=== PATIENT | female | born 1945 | race Caucasian/White ===

== ENCOUNTER 2020-03-26 06:38 | Inpatient (IN) | payer OTHER, SELFPAY ==
[2020-03-26] VITALS (18 sets, daily range): BP systolic 132–211; BP diastolic 46–77; PULSE 35–82; RESP 12–24; TEMP 36–36.6; O2SAT 94–100; BMI 27.3; BMI 27.4
--- NOTE | 2020-03-26 | ECHO_ITS ---
Patient Info Name: Annel Corona Age: 74 years : 1945 Gender: Female Ht: 64 in Wt: 159 lbs BSA: 1.82 m2 HR: 39 bpm BP: 173 / 51 mmHg Heart Rhythm: Sinus Rhythm, Bradycardia Technical Quality: Good Exam Date: 03/26/2020 2:05 PM Exam Location: [facility] Pulmonary Exam Room: 205 Patient Status: Inpatient Admit Date: 03/26/2020 Staff Ordering Physician: Gretchen Almeida MD Chucking Machine Set Up Operator Tool: Yvrose Valdes RDCS Attending Provider: Po Fierro MD Referring Physician: Juan Pablo CAMPBELL; Exam Type: CA echo doppler color flow Study Info Indications - bradycardia Complete two-dimensional, color flow and Doppler transthoracic echocardiogram is performed. Summary 1. Complete two-dimensional, color flow and Doppler transthoracic echocardiogram is performed. 2. Left ventricular chamber dimension is normal. 3. Left ventricular systolic function is normal, estimated at 60-65%. 4. Modest biatrial enlargement. 5. Mild mitral and tricuspid regurgitation. Left Ventricle Left ventricular chamber dimension is normal. Left ventricular systolic function is normal, estimated at 60-65%. The left ventricular diastolic function is indeterminate. Right Ventricle Right ventricular chamber dimension is normal. Left Atria Left atrial chamber dimension is mildly enlarged. Right Atria Right atrial chamber dimension is mildly enlarged. Aortic Valve The aortic valve is normal. Pulmonic Valve The pulmonic valve is normal. Mitral Valve The mitral valve has normal leaflets. There is mild mitral valve regurgitation. The mitral valve annulus is mildly calcified. Tricuspid Valve The tricuspid valve leaflets are normal. There is mild tricuspid valve regurgitation. Pericardium/Pleural The pericardium appears normal. Aorta The aortic root size at the sinus of Valsalva is normal. Left Ventricular Outflow Tract Name Value Normal LVOT 2D LVOT Diameter 2.0 cm LVOT Doppler LVOT Peak Gradient 5 mmHg LVOT Mean Gradient 3 mmHg LVOT VTI 30 cm LVOT VTI/AV VTI Ratio 0.8 LVOT Stroke Volume 96 ml LVOT CO 16.6 l/min LVOT CI 9.1 l/min/m2 Pulmonic Valve Name Value Normal PV Doppler PV Peak Gradient 4 mmHg Mitral Valve Name Value Normal MV Doppler MV Decel Blount 219 cm/s2 MV PHT 80 ms MV Area (P
--- NOTE | ~2020-03-26 | XR_ITS ---
XR chest 1V portable DATE: 03/26/2020 16:48 INDICATION: Pacemaker insertion TECHNIQUE: Portable AP chest on 03/26/2020 at 1646 hours COMPARISON: 03/26/2020 portable AP chest at 0728 hours FINDINGS: Interval placement of left dual-lead pacemaker with leads overlying right atrium and right ventricle. No pneumothorax or pleural effusion. The lungs are clear of infiltrate or consolidation. N o pulmonary vascular congestion. There is mild elevation of the left leaf of the diaphragm. There is mild bilateral apical capping. Surgical clips overlie the left upper quadrant of the abdomen. Diffuse osteopenia. IMPRESSION: Interval placement of left-sided dual-lead pacemaker device; no pneumothorax Reviewed, dictated and finalized at location A. IMPRESSION: Interval placement of left-sided dual-lead pacemaker device; no pne umothorax
--- NOTE | ~2020-03-26 | XR_ITS ---
EXAMINATION: XR chest 1V portable DATE: 03/26/2020 07:26 INDICATION: Bradycardia. Right lower quadrant pain and weakness. TECHNIQUE: frontal view of the chest was obtained. COMPARISON: Chest radiograph dated 06/11/2018 FINDINGS: Mild bibasilar opacities including increased interstitial pattern and bronchial wall thickening. Tiny left pleural effusion with blunting at left costophrenic angle. No pneumothorax. Borderline heart si ze accounting for AP technique. Surgical clips in the left upper quadrant. Mild thoracic dextrocurvat ure. IMPRESSION: 1. Mild bibasilar opacities with increased interstitial pattern and bronchial wall thickening which c ould be related to mild pulmonary edema, bronchitis, atelectasis or some combination thereof. 2. Tiny left pleural effusion. 3. Borderline heart size accounting for AP technique. Reviewed, dictated and finalized at location A. IMPRESSION: 1. Mild bibasilar opacities with increased interstitial pattern and bronchial w all thickening which could be related to mild pulmonary edema, bronchitis, atel ectasis or some combination thereof. 2. Tiny left pleural effusion. 3. Borderline heart size accounting for AP technique.
--- NOTE | ~2020-03-26 | XR_ITS ---
XR knee LT 3V 03/27/2020 13:36 Indication: Left knee pain and swelling Procedure: 3 views left knee Comparison: No prior studies for comparison. Findings: There is moderate-severe osteoarthritis of the left knee, most advanced in the medial kristin rtment. There is chondrocalcinosis. There is a moderate joint effusion. No acute fracture or traumati c malalignment. Impression: 1: Moderate-severe osteoarthritis of the left knee with moderate joint effusion. 2: Chondrocalcinosis. Reviewed, dictated and finalized at location A. Impression: 1: Moderate-severe osteoarthritis of the left knee with moderate joint effusion . 2: Chondrocalcinosis.
--- NOTE | ~2020-03-26 | XR_ITS ---
EXAMINATION: XR chest 2V DATE: 03/27/2020 15:54 INDICATION: Pacer placement. TECHNIQUE: Frontal and lateral views of the chest were obtained. COMPARISON: Chest single view 03/26/2020, chest 2 views 06/11/2018 FINDINGS: There is chronic mild elevation of left hemidiaphragm. There are small pleural effusions. N o pneumothorax. The heart size is normal. There is a left chest wall pacer with leads in the right at rium and right ventricle. Surgical clips overlie left upper quadrant. IMPRESSION: 1. Small pleural effusions. Reviewed, dictated and finalized at location A. IMPRESSION: 1. Small pleural effusions.
--- NOTE | 2020-03-26 07:02 | ED.GENADULT ---
HPI - General Adult General Chief complaint: Unspecified Stated complaint: feels really sick Time Seen by Provider: 03/26/20 07:02 Source: patient Mode of arrival: ambulatory Limitations: no limitations History of Present Illness HPI narrative: Patient is a 74-year-old female who presents for evaluation of fatigue and general malaise. Patient states over the past 3 weeks she has just felt generally unwell with lack of energy. She denies any shortness of breath, chest pain, but states she feels diffusely weak and has had low energy. She has seen her primary care physician twice in that time and has had outpatient laboratory testing sent. She states she has had some right lower groin pain that started yesterday that seems to be worse with movement, without nodule, rash or swelling in that area. No dysuria or hematuria. No vaginal discharge. Patient states that this pain started yesterday and may be musculoskeletal in nature. She denies any recent heavy bending or lifting. Patient states she recently had her medications changed and was taken off carvedilol for having a low heart rate found in her primary care physician's office and placed on lisinopril. Related Data Home Medications Medication Instructions Recorded Confirmed ascorbate calcium-bioflavonoid 500 1 tablet PO BID tablet 06/24/19 mg-200 mg tablet ascorbic acid (vitamin C) 1,000 mg 1 gm PO DAILY 06/24/19 tablet calcium citrate-vitamin D3 500 gm PO BID gm 06/24/19 mg-500 unit/5 gram oral powder multivit,mineral-folic acid 800 tablet PO DAILY tablet 06/24/19 mcg-vit K 100 mcg-herbal no.289 tablet pslgfeowyaok-ruqkubjx-njkzhp 1 tablet PO DAILY 06/24/19 cholecalciferol (vitamin D3) 25 2,000 unit PO DAILY cap 12/23/19 mcg (1,000 unit) capsule cyanocobalamin (vitamin B-12) 500 500 mcg PO DAILY 12/23/19 mcg tablet loratadine 10 mg tablet 10 mg PO DAILY 12/23/19 magnesium oxide PO 12/23/19 turmeric PO 12/23/19 Allergies Allergy/AdvReac Type Severity Reaction Status Date / Time influenza virus vaccine qs Allergy Severe Anaphylaxis Verified 03/26/20 07:02 [id number] (36 mos, up) [From Fluarix Quad] pneumococcal vaccine Allergy Severe Anaphylaxis Verified 03/26/20 07:02 codeine Allergy Mild Nausea and Verified 03/26/20 07:02 Vomiting Review of Systems Review of Systems: Narrative: CONSTITUTIONAL: Denies fever, chills, or sweats. EYES: Denies visual changes ENT: Denies rhinorrhea, congestion, sore throat, or otalgia. CARDIOVASCULAR: Denies chest pain, palpitations, or edema. RESPIRATORY: Denies cough or dyspnea. GASTROINTESTINAL: Denies abdominal pain, nausea, vomiting, or diarrhea. GENITOURINARY: Denies dysuria or hematuria. SKIN: Denies rash or itching. MUSCULOSKELETAL: Denies back pain, joint pain, or myalgia. NEUROLOGIC: Denies headache, numbness, or weakness. [facility] Social History Social History Smoking status: Never smoker Second hand tobacco smoke exposure: No Alcohol intake: never Exam Narrative: Exam Narrative: GENERAL: Awake, alert, conversant HEAD: Normocephalic, atraumatic. EYES: PERRLA and EOMI. ENT: Nares clear, no rhinorrhea or epistaxis. Mucous membranes moist. NECK: Supple. CHEST: No respiratory distress, breathing even and non labored HEART:Bradycardic rate, abnormal rhythm ABDOMEN:Non distended, non tender EXTREMITIES: Normal range of motion. No edema. : Pelvis is non tender. No nodules. No lymphadenopathy. No hernia. Labia majora unremarkable. No lesions or vesicles. SKIN: Warm, dry, no rash. NEURO:No focal deficits. Alert and oriented x3 Course Vital Signs Vital signs: Vital Signs Temperature 36.6 C 03/26/20 06:51 Pulse Rate 35 L 03/26/20 06:51 Respiratory Rate 03/26/20 06:51 Blood Pressure 206/46 H 03/26/20 06:51 Pulse Oximetry 99 03/26/20 06:51 Temperature 36.6 C 03/26/20 06:51 Pulse Rate 42 L
--- NOTE | 2020-03-26 07:03 | ECG_ITS ---
Measurements Intervals [place] Rate: 45 P: AL: 0 QRS: 103 QRSD: 118 T: -3 QT: 509 QTc: 444 Interpretive Statements SINUS RHYTHM WITH COMPLETE HEART BLOCK JUNCTIONAL ESCAPE RHYTHM AND VENTRICULAR ESCAPE COMPLEXES RIGHT AXIS DEVIATION INTRAVENTRICULAR CONDUCTION DELAY BORDERLINE ST-T WAVE ABNORMALITY- ANTEROLAT/INF LEADS ABNORMAL ECG Electronically Signed On 03-26-2020 7:13:04 CDT by Felipe Ross D.O.
--- NOTE | 2020-03-26 07:20 | ECG_ITS ---
Measurements Intervals [place] Rate: 40 P: 53 CA: 265 QRS: -28 QRSD: 145 T: 120 QT: 497 QTc: 406 Interpretive Statements SINUS RHYTHM WITH COMPLETE HEART BLOCK JUNCTIONAL ESCAPE AND VENTRICULAR ESCAPE COMPLEXES POSSIBLE LEFT ATRIAL ENLARGEMENT INTRAVENTRICULAR CONDUCTION DELAY ABNORMAL ECG Electronically Signed On 03-26-2020 8:09:29 CDT by Felipe Ross D.O.
[2020-03-26 07:29] LABS: Basophils Percent Auto 0.3 % (0.2-1.2); Eosinophils Absolute Auto 0.1 K/mm3 (0-0.3); Eosinophils Percent Auto 0.6 % (0-4.4); Hematocrit 43.2 % (37.0-47.0); Hemoglobin 14.5 g/dL (12.0-15.0); Immature Granulocyte Absolute 0.03 K/mm3 (0.00-0.031); Immature Granulocyte Percent A 0.3 % (0-0.5); Immature Platelet Fraction Pct 18.3 % (0.9-11.2); Lymphocytes Absolute Auto 1.57 K/mm3 (0.9-3.2); Lymphocytes Percent Auto 17.4 % (18.3-44.2); Mean Corpuscular HGB Conc 33.6 g/dl (32-36); Mean Corpuscular Hemoglobin 31.3 pg (26-34); Mean Corpuscular Volume 93.3 fl (80-100); Mean Platelet Volume 14.2 fl (7.4-10.4); Monocytes Absolute Auto 1.1 K/mm3 (0.1-0.6); Monocytes Percent Auto 11.8 % (2.6-8.5); Neutrophils Absolute Auto 6.3 K/mm3 (1.3-6.7); Neutrophils Percent Auto 69.6 % (45.5-73.1); Platelet Count Result 210 k/mm3 (150-375); Red Blood Count 4.63 M/mm3 (4.2-5.4); Red Cell Distribution Width 12.7 % (11.5-14.5)
[2020-03-26 07:35] LABS: INR 1.2; Partial Thromboplastin Time 26.6 SECONDS (22.3-36.8); Prothrombin Time 15.2 Seconds (11.1-14.7)
[2020-03-26 07:38] LABS: Alanine Aminotransferase 94 U/L (4-35); Albumin Level 4.1 g/dL (3.5-5.1); Alkaline Phosphatase 66 U/L (38-126); Anion Gap 7 mmol/L (8-16); Aspartate Amino Transferase 34 U/L (14-36); Bilirubin,Total 0.9 mg/dL (0.2-1.3); Blood Urea Nitrogen 13 mg/dL (7-17); Calcium 9.1 mg/dL (8.4-10.2); Carbon Dioxide 28 mmol/L (22-30); Chloride 99 mmol/L (98-107); Estimated CRCL calculation 69 ml/min; Estimated Glomerular Filt Rate > 60; Glucose 104 mg/dL (65-105); Potassium 3.4 mmol/L (3.4-5.0); Sodium 134 mmol/L (137-145)
[2020-03-26 07:50] LABS: Troponin I < 0.012 ng/mL (0.000-0.034)
[2020-03-26 08:27] LABS: NT Pro B Type Natriuretic Pept 1500 PG/ML (5-100)
[2020-03-26 10:00] LABS: Add Urine Microscopic? NO; Appearance Urine Clear (Clear); Bilirubin Urine Negative (Negative); Blood Urine Negative (Negative); Color Urine Yellow (Yellow); Glucose Urine UA Negative (Negative); Ketones Urine Negative (Negative); Leukocyte Esterase Ur Negative LEU/UL (Negative); Nitrate Urine Negative (Negative); Protein Urine Negative (Negative); Specific Grav Ur 1.011 (1.001-1.035); Urobilinogen Urine Negative mg/dL (<2.0)
--- NOTE | 2020-03-26 10:57 | ADMGEN ---
This patient, Annel Corona, was admitted to IMU Room 205-01. Patient/family oriented to hospital policies and general routines including ID bracelet, bed and alarms, visiting hours, pain management, procedures, bathroom and other care routines, personal items, smoking policy, room service/diet, and visiting hours. Valuables list has been completed. Information on how to activate the Rapid Response Team has been discussed. Patient/Family are encouraged to report perceived risks to care and to ask questions if they do not understand what they are told or what they should do.
[2020-03-26 12:24] LABS: Troponin I < 0.012 ng/mL (0.000-0.034)
--- NOTE | 2020-03-26 14:23 | WPDMODSED ---
Moderate Sedation Note-Pt Data Patient Data Diagnosis: symptomatic bradycardia with complete heart block chronic left bundle-branch block hypertension Present Complaint: this is a 74-year-old hypertensive lady with a chronic left bundle-branch block. She enters the hospital with symptoms of generalized fatigue extreme lack of energy but no history of syncope or near syncope. In the emergency room she was found to be bradycardic has sinus rhythm with complete heart block and is now being referred for pacemaker implantation Procedure to be performed/Plan: implantation of permanent dual-chamber pacemaker Allergies Allergy/AdvReac Type Severity Reaction Status Date / Time influenza virus vaccine qs Allergy Severe Anaphylaxis Verified 03/26/20 07:02 [id number] (36 mos, up) [From Fluarix Quad] pneumococcal vaccine Allergy Severe Anaphylaxis Verified 03/26/20 07:02 codeine Allergy Mild Nausea and Verified 03/26/20 07:02 Vomiting Home Medications Medication Instructions Recorded Confirmed Type ascorbate calcium-bioflavonoid 500 1 tablet PO BID tablet 06/24/19 03/26/20 History mg-200 mg tablet ascorbic acid (vitamin C) 1,000 mg 1 gm PO DAILY 06/24/19 03/26/20 History tablet calcium citrate-vitamin D3 500 gm PO BID gm 06/24/19 History mg-500 unit/5 gram oral powder ifftmoejrvuh-avljgmvt-mpyelz 1 tablet PO DAILY 06/24/19 03/26/20 History cholecalciferol (vitamin D3) 25 2,000 unit PO DAILY cap 12/23/19 03/26/20 History mcg (1,000 unit) capsule cyanocobalamin (vitamin B-12) 500 500 mcg PO DAILY 12/23/19 03/26/20 History mcg tablet turmeric 500 mg PO DAILY 12/23/19 03/26/20 History lisinopril 20 1 tablet PO BID #90 tablet 03/15/20 03/26/20 Rx mg-hydrochlorothiazide 12.5 mg tablet Current Medications: Active Medications Cefazolin Sodium (Ancef 1 Gm/D5w 50 Ml Pm) 1 gm in 50 mls @ 100 mls/hr IVPB ONCE ONE Stop: 03/26/20 14:29 Ondansetron HCl (Zofran Inj) 4 mg IV PUSH Q4H PRN PRN Reason: Nausea Sedation/Anesthesia: No previous sedation/anesthesia problems (including family history). PMFSH Social History Social History Smoking status: Never smoker Second hand tobacco smoke exposure: No Alcohol intake: unknown Substance use: never Substance use type: does not use Gender identity (if verbalized by the patient): Female Sexual Orientation (if Verbalized by the Patient): Straight or Heterosexual Spiritual care concerns: No Mod Sed Physical Exam Physical Exam Pre Procedural Exam: Normal: Appearance, Nose, Neck, Throat, Airway, Lungs, Heart Size, Neuro Exam and Extremities and Variation: Heart Rate ( bradycardic) and Heart Rhythm Hours since solid foods: 14 Hours since liquid intake: 14 Internal Medicine - PN: Obj Da Vital Signs Vital Signs: Vital Signs - 24 hr 03/26/20 06:51 03/26/20 08:46 03/26/20 09:25 Temperature 36.6 C Pulse Rate 35 L 39 L 35 L Respiratory Rate 20 18 24 H Blood Pressure 206/46 H 173/51 H 188/57 H Pulse Oximetry 99 97 97 03/26/20 09:36 03/26/20 10:30 03/26/20 11:56 Temperature 36.2 C L 36.2 C L Pulse Rate 42 L 43 L 41 L Respiratory Rate 17 16 16 Blood Pressure 167/62 H 211/49 H 147/67 H Pulse Oximetry 98 100 100 Intake/Output Intake/Output: Intake & Output 03/23/20 03/24/20 03/25/20 03/26/20 23:59 23:59 23:59 23:59 Output Total 400 Balance -400 Meds/Results Medications: Active Medications Generic Name Dose Route Start Last Admin Trade Name Freq PRN Reason Stop Dose Admin Cefazolin Sodium 1 gm in 50 mls @ 100 mls/hr 03/26/20 14:00 Ancef 1 Gm/D5w 50 Ml Pm IVPB 03/26/20 14:29 ONCE ONE Ondansetron HCl 4 mg 03/26/20 09:01 Zofran Inj IV PUSH Q4H PRN Nausea Radiology Results: ITS Impressions Chest X-Ray 03/26/20 07:32 IMPRESSION: 1. Mild bibasilar opacities with increased interstitial pattern and bronchial wall thic
--- NOTE | 2020-03-26 14:28 | PM.CNCAR ---
Assessment and Plan Additional Plan 74-year-old woman with hypertension and chronic left bundle-branch block presents with fatigue lack of energy and significant bradycardia because of acquired complete heart block. The setting permanent cardiac pacemaker implant has been recommended. The patient understands the procedure all the risks were discussed in detail with she and her and she wishes to proceed we will schedule this procedure for this afternoon Quinn Feng MD [facility] History of Present Illness History of Present Illness Consult date/time: 03/26/20 14:28 Reason For Visit: Bradycardia Narrative: this is a 74-year-old patient I am seeing at the request of the hospitalist for evaluation of bradycardia and complete heart block. The patient has a history of chronic left bundle branch block but no other history of significant cardiac problems. She was seen several years ago by my partner, Dr. Umaña in consultation because of chest pain. She did have a left bundle-branch block at that time at that time her symptoms were felt to be atypical of angina and a Lexiscan nuclear stress test was done as an outpatient with unremarkable findings. As such she had not really been followed routinely in our office and has been doing well. She states of between 1-2 weeks ago she suddenly noticed that she has sense of extreme fatigue and lack of energy and saw her physician. She found to be a bit bradycardic so she was taken off of a small dose of carvedilol that she was on she did not feel any better so she came to the emergency room this morning was found to be in complete heart block with escape rhythm heart rate of about 35. In this setting she was seen in consultation and she is no longer taking any medications that would affect the AV node physiology and as such permanent pacemaker implantation was recommended. Review of Systems Constitutional: Constitutional: Reports fatigue and Reports weakness Eyes: Eyes: Reports no additional eye complaints ENT: Reports system reviewed and no additional complaints, except as documented Cardiovascular: Cardiovascular: Reports as per HPI Respiratory: Respiratory: Reports dyspnea on exertion Gastrointestinal: Gastrointestinal: Reports no additional gastrointestinal complaints Musculoskeletal: Musculoskeletal: Reports no additional musculoskeletal complaints Integumentary/Breasts: Skin/Breast: Reports system reviewed and no additional complaints, except as docu Neurologic: Reports system reviewed and no additional complaints, except as documented Endocrine: Endocrine: Reports no additional endocrine complaints Hematologic/Lymphatic: Hematologic/Lymphatic: Reports no additional hematologic/lymphatic complaints Allergic/Immunologic: Allergic/Immunologic: Reports no additional allergic/immunologic complaints PMFSH Social History Social History Smoking status: Never smoker Second hand tobacco smoke exposure: No Alcohol intake: unknown Substance use: never Substance use type: does not use Gender identity (if verbalized by the patient): Female Sexual Orientation (if Verbalized by the Patient): Straight or Heterosexual Spiritual care concerns: No Meds Home Medications and Allergies Home Medications Medication Instructions Recorded Confirmed Type ascorbate calcium-bioflavonoid 500 1 tablet PO BID tablet 06/24/19 03/26/20 History mg-200 mg tablet ascorbic acid (vitamin C) 1,000 mg 1 gm PO DAILY 06/24/19 03/26/20 History tablet calcium citrate-vitamin D3 500 gm PO BID gm 06/24/19 History mg-500 unit/5 gram oral powder kopfrnayvevn-xjoeibcd-zlprww 1 tablet PO DAILY 06/24/19 03/26/20 History cholecalciferol (vitamin D3) 25 2,000 unit PO DAILY cap 12/23/19 03/26/20 History mcg (1,000 unit) capsule cyanocobalamin (vitamin B-12) 500 500 mcg PO DAILY 12/23/19 03/26/20 History mcg tablet turme
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
--- NOTE | 2020-03-26 16:07 | ECG_ITS ---
Measurements Intervals [place] Rate: 65 P: 32 RI: 152 QRS: -75 QRSD: 154 T: 82 QT: 475 QTc: 497 Interpretive Statements ATRIAL SENSE- ELECTRONIC VENTRICULAR PACEMAKER NO FURTHER INTERPRETATION IS POSSIBLE ATYPICAL ECG Electronically Signed On 03-26-2020 17:40:00 CDT by Felipe Ross D.O.
--- NOTE | 2020-03-26 16:09 | WPDCARDPROC ---
Cardiac Cath Procedure Note Date of procedure:: 03/26/20 Performing physician:: Quinn Feng MD Indication:: acquired complete heart block Brief clinical history:: this is a 74-year-old lady without any previous history of significant cardiac problems but with a history of chronic left bundle branch block. She began to experience extreme fatigue and dyspnea 1-2 weeks ago and was found in the emergency room to be bradycardic and with evidence of acquired complete heart block. She has no symptoms of syncope or near-syncope and is taking no medications that would affect AV node function. For this reason implantation of a permanent pacemaker device was recommended. Procedure Procedure performed:: Implantation of permanent Biotronik dual-chamber pacemaker Sedation/Medication given:: fentanyl 50 mg Versed 2 mg case start time 3:25 p.m. case end time 4:02 p.m. sedation provided by Hans Santana RN, trained observer Access site:: left subclavian vein Estimated blood loss:: 15-20 cc Procedure note:: patient was brought to the cardiac catheterization lab in the postabsorptive state the left anterior chest wall was prepared and draped in the normal fashion. Anesthesia was provided with 1% lidocaine inferior to clavicle. About 1 in below the clavicle incision was then made from the mid clavicular line to the deltopectoral groove. Sharp and blunt dissection was used to dissect the subcutaneous tissues to the level of the prepectoral fascia. Electrocautery was used to provide cutaneous hemostasis. A blunt dissection was then used to create a pacemaker pocket inferior to the incision this was packed with an antibiotic infused sponge. Following this attention was turned to venous access. Using the safe sheath kit provided 2 separate punctures were made of the left subclavian vein and the 2 J wires were placed under fluoroscopic visualization into the level of the right atrium. Following this I used the 6 Tamazight be safe sheath to introduce the ventricular lead into the venous circulation and then the atrial lead following this in a similar fashion. Attention was then turned to the positioning of the ventricular lead the stylet was withdrawn and a J-tip stylet was flat fashion using a 3 cc syringe. The lead was negotiated through the right ventricle out to the PA position a straight set was placed into the lead was withdrawn and placed into the right ventricular apex. The fixation screw was deployed and the lead was tested using the analyzer appropriate pacing performance was demonstrated appropriate impedance. And with a 10 volts stimulus there was no evidence of extracardiac stimulation. Once pacing was initiated the intrinsic R-waves were extinguished. Attention was then turned to the atrial lead position. The preformed J stylette was replaced into the lead after the straight stylet was removed. This was used to position the lead tip in the right atrial appendage and the fixation screw was deployed upon withdrawal of the stylet the lead tip was fixed into position and the lead was tested using the analyzer. The pacing and sensing performance was appropriate and a 10 volts stimulus also showed no evidence of extracardiac stimulation. The leads were then secured to the base of the pocket using the supplied suture sleeves and 2 0 silk ties. The retained sponge was then removed from the pocket and the pocket was irrigated with antibiotic infused saline. The pacemaker generator was connected to the leads using the torque wrench the entire assembly was placed into the newly created pocket. The pocket was then closed in layers using 3 0 Vicryl in a interrupted fashion for the subcutaneous tissue and 4 0 Vicryl in a running subcuticular fashion for the skin. Wound was dressed with an Aquacel dressing and a pressure dressing the left arm will be placed in an immobilizer appropriate EKG chest x-ray and antibiotics as well as analgesics were ordered. Th
--- NOTE | 2020-03-26 17:18 | SUR.PHASEII ---
multiple calls placed to call report no answer via voicera or desk. Bedside report given.
[2020-03-26] MEDS: SODIUM CHLORIDE 0.9% IV 1,000 ML 50 ML IV CONT (19:01)
[2020-03-26 19:11] LABS: Troponin I 0.045 ng/mL (0.000-0.034)
[2020-03-27] VITALS (10 sets, daily range): BP systolic 131–175; BP diastolic 50–73; PULSE 56–88; RESP 12–18; TEMP 36.3–36.5; O2SAT 94–95
[2020-03-27 05:38] LABS: Basophils Percent Auto 0.2 % (0.2-1.2); Eosinophils Percent Auto 0.3 % (0-4.4); Hematocrit 39.6 % (37.0-47.0); Hemoglobin 13.3 g/dL (12.0-15.0); Immature Granulocyte Absolute 0.04 K/mm3 (0.00-0.031); Immature Granulocyte Percent A 0.3 % (0-0.5); Lymphocytes Absolute Auto 0.97 K/mm3 (0.9-3.2); Lymphocytes Percent Auto 8.4 % (18.3-44.2); Mean Corpuscular HGB Conc 33.6 g/dl (32-36); Mean Corpuscular Hemoglobin 31.7 pg (26-34); Mean Corpuscular Volume 94.3 fl (80-100); Mean Platelet Volume 13.8 fl (7.4-10.4); Monocytes Absolute Auto 1.2 K/mm3 (0.1-0.6); Monocytes Percent Auto 10.2 % (2.6-8.5); Neutrophils Absolute Auto 9.4 K/mm3 (1.3-6.7); Neutrophils Percent Auto 80.6 % (45.5-73.1); Platelet Count Result 185 k/mm3 (150-375); Red Cell Distribution Width 12.5 % (11.5-14.5); White Blood Count 11.6 K/mm3 (4.5-10.0)
[2020-03-27 05:48] LABS: Alanine Aminotransferase 63 U/L (4-35); Albumin Level 3.3 g/dL (3.5-5.1); Alkaline Phosphatase 58 U/L (38-126); Anion Gap 7 mmol/L (8-16); Aspartate Amino Transferase 23 U/L (14-36); Bilirubin,Total 0.9 mg/dL (0.2-1.3); Blood Urea Nitrogen 12 mg/dL (7-17); Calcium 8.1 mg/dL (8.4-10.2); Carbon Dioxide 25 mmol/L (22-30); Chloride 102 mmol/L (98-107); Estimated CRCL calculation 69 ml/min; Estimated Glomerular Filt Rate > 60; Glucose 94 mg/dL (65-105); Magnesium 1.5 mg/dL (1.6-2.3); Potassium 3.3 mmol/L (3.4-5.0); Sodium 134 mmol/L (137-145)
[2020-03-27] MEDS: MAGNESIUM SULF 2 GM/WATER 50ML 2 GM/50 ML BAG IVPB (09:38)
[2020-03-27] MEDS: POTASSIUM CHLORIDE 20 MEQ TABLET 40 MEQ PO (09:38)
[2020-03-27 10:05] LABS: Uric Acid 6.9 mg/dL (2.5-7.5)
--- NOTE | 2020-03-27 11:07 | PM.PNCARD ---
Progress Note: A&P Additional Plan 74-year-old lady with acquired heart block symptomatic bradycardia warranting implantation of dual-chamber pacemaker. The device was implanted yesterday afternoon. It is checked this morning and is functioning normally. After her bedrest expires from my perspective she can be discharged. She will see the office next Sunday for a all visit to remove the dressing and inspect the incision. Following that routine pacemaker follow-up follow-up will be arranged in the office as well. Quinn Feng MD [facility] Subjective Date/time seen: 03/27/20 11:07 Interval history: follow-up visit in this 74-year-old lady with complete heart block who received a permanent pacemaker implantation yesterday. No cardiovascular symptoms this morning she is having some swelling/knee pain for some reason pacemaker device was checked by the [employer] senior sales representative this morning and is functioning normally. Bedrest orders for her pacemaker implant go until this afternoon. Exam Const: General: comfortable and no acute distress HENMT: Mouth: Yes moist mucous membranes Eyes: Sclera: sclerae normal Pupils: Equal, round and reactive pupils present Neck: Neck: supple and no JVD Thyroid: thyroid normal Resp: Effort & Inspection: normal respiratory effort Auscultation: clear to auscultation bilaterally Cardio: Rate: regular rate Rhythm: regular rhythm GI: Auscultation: normal bowel sounds Skin: General skin exam: normal color Neuro: Cognition (Neuro): normal cognition Extrem: General: normal to inspection Objective Data Vital Signs Vital Signs: Vital Signs - 24 hr 03/26/20 11:56 03/26/20 16:30 03/26/20 16:45 Temperature 36.2 C L 36.2 C L Pulse Rate 41 L 66 70 Respiratory Rate 16 12 16 Blood Pressure 147/67 H 155/71 H 165/70 H Pulse Oximetry 100 97 96 03/26/20 17:00 03/26/20 17:15 03/26/20 17:45 Temperature 36.2 C L 36.2 C L 36.2 C L Pulse Rate 67 64 67 Respiratory Rate 17 18 16 Blood Pressure 151/64 H 159/71 H 143/70 H Pulse Oximetry 95 95 96 03/26/20 18:00 03/26/20 18:15 03/26/20 20:00 Temperature Pulse Rate 76 68 82 Respiratory Rate 16 Blood Pressure 151/74 H Pulse Oximetry 97 97 09/11/20 20:15 03/26/20 21:27 03/26/20 22:00 Temperature 36.1 C L 36.0 C L Pulse Rate 79 77 65 Respiratory Rate 16 16 Blood Pressure 142/59 H 166/77 H Pulse Oximetry 97 97 03/26/20 23:14 03/27/20 00:00 03/27/20 02:00 Temperature 36.1 C L Pulse Rate 68 69 70 Respiratory Rate 16 Blood Pressure 132/50 L Pulse Oximetry 94 94 03/27/20 04:00 03/27/20 04:30 03/27/20 06:00 Temperature 36.3 C L Pulse Rate 70 56 L 70 Respiratory Rate 18 Blood Pressure 131/50 L Pulse Oximetry 95 03/27/20 08:00 Temperature 36.5 C Pulse Rate 73 Respiratory Rate 12 Blood Pressure 175/73 H Pulse Oximetry 95 Intake/Output Intake/Output: Intake & Output 03/24/20 03/25/20 03/26/20 03/27/20 23:59 23:59 23:59 23:59 Intake Total 530 690 Output Total 400 750 Balance 130 -60 Meds/Results Medications: Active Medications Generic Name Dose Route Start Last Admin Trade Name Freq PRN Reason Stop Dose Admin Hydrocodone Bitart/Acetaminophen 1 tab 03/26/20 16:07 03/27/20 09:33 Webb 5-325 Mg PO 1 tab Q6H PRN Administration Pain Rated 1-3 Ondansetron HCl 4 mg 03/26/20 09:01 Zofran Inj IV PUSH Q4H PRN Nausea Radiology Results: ITS Impressions Chest X-Ray 03/26/20 17:01 IMPRESSION: Interval placement of left-sided dual-lead pacemaker device; no pneumothorax Labs Labs: Laboratory Results - last 24 hr 03/26/20 03/26/20 03/27/20 11:42 18:37 04:37 WBC RBC Hgb Hct MCV MCH MCHC RDW Plt Count MPV Immature Gran % (Auto) Neut % (Auto) Lymph % (Auto) [place] % (Auto) Eos % (Auto) Baso % (Auto) Lymph # (Auto) [place] # (Auto) Eos # (Auto) Baso
--- NOTE | 2020-05-13 12:34 | PM.DS ---
DS: Admitting Diagnosis Admitting Diagnosis Admitting Diagnosis: Complete heart block DS: Discharge Diagnosis Discharge Diagnosis (1) Complete heart block: Code(s): I44.2 - Atrioventricular block, complete Status: Acute DS: Summary Hospital Course Reason for hospitalization: Symptomatic bradycardia with complete heart block Hospital Course: This 74-year-old woman who came to the emergency room reporting several weeks of feeling generally weak and unwell. She was found to be bradycardic and electrocardiogram demonstrated evidence of acquired complete heart block. Patient was admitted to the hospital and I saw her in consultation following which implantation of a permanent cardiac pacemaker was recommended. That afternoon the patient was brought to the cardiac catheterization lab where she underwent uneventful implantation of a permanent Biotronik dual-chamber pacemaker for treatment of complete heart block. The procedure was uncomplicated and uneventful. Following the implant 24 hours of bed rest was recorded and patient was seen the following day she was stable in a good candidate for discharge. Patient was discharged home and instructed not to raise left arm above 90? for the next month not to lift anything more than 10 lb with the left arm until seen in the office for follow-up. An appointment was given to the patient for follow-up in the office in 1 week for a are addressing removal she was instructed to keep the dressing clean and dry until the time of that follow-up appointment. Status at Discharge Functional status at discharge: independent ambulation Overall status at discharge: patient is back to baseline Time Spent with Patient Time attestation: Total time spent providing and/or coordinating discharge services: Time spent: Less than 30 minutes Exam Const: General: comfortable and no acute distress HENMT: Mouth: Yes moist mucous membranes Eyes: Sclera: sclerae normal Pupils: Equal, round and reactive pupils present Neck: Neck: supple and no JVD Thyroid: thyroid normal Other: Normal carotid upstrokes no bruits are audible over the neck Resp: Effort & Inspection: normal respiratory effort Auscultation: clear to auscultation bilaterally Cardio: Rate: regular rate Rhythm: regular rhythm GI: GI Palp: Yes Soft to palpation Auscultation: normal bowel sounds Skin: General skin exam: normal color Neuro: Other: Normal cognition no neurological impairment Extrem: General: normal to inspection Discharge Plan Discharge Attending physician on discharge: Po Fierro Consulting providers: Quinn Feng ; Alie Gibbs ; Ronen Zarate ; Felipe Ross ; Dalton Medina ; Garrett Staley V. Discharging Clinician: Cynthia Liao Patient Disposition: Home, Self-Care Activity: as tolerated Diet: heart healthy Discharge Instructions: Hospital Discharge Instructions You will be prescribed a medrol dose pack for your knee. Your xray showed osteoarthritis with moderate effusion. Follow-up with your primary care doctor next week for your knee pain and swelling. If your knee pain or swelling worsens or if the joint becomes red or warm, seek care immediately. You can use ice or heat, elevate the leg, and rest. CARDIOLOGY DISCHARGE INSTRUCTIONS: ACTIVITY:No driving until you are seen in the office for your incision check. No lifting, pushing or pulling more than 5 pounds with left arm for 1 MONTH No lifting left arm above shoulder height for 1 MONTH Wear immobilizer only if you are unable to remember the above activity restrictions. Recommend that it be worn at night. You may shower AFTER you are seen for incision check on April 02 but no tub baths, swimming pool or hot tub for 1MONTH FOLLOW-UP: Follow up with [facility] ([facility]) office at [facility] [address] to have dressing removed, incision check
== END 2020-03-27 17:30 | disposition home or self-care (01) | DRG 244 ==
LOC: ANHED 09:04 → ANHIMU 09:32
PROVIDERS: Nurse Practitioner; Physician Assistant; Admitting Provider Hospitalist; Emergency Provider Emergency Medicine; PCP Family Medicine; Visit Provider Specialist
PROC: 0JH606Z Insertion of Pacemaker, Dual Chamber into Chest Subcutaneous Tissue and Fascia, Open Approach (ICD-10-PCS; CPT 33208; principal; 2020-03-26 14:00)
DX: I44.2 Atrioventricular block, complete (principal); I10 Essential (primary) hypertension; R53.1 Weakness; Z28.21 Immunization not carried out because of patient refusal; Z79.899 Other long term (current) drug therapy; Z88.5 Allergy status to narcotic agent; Z88.7 Allergy status to serum and vaccine
CPT/HCPCS: 33208; 36415; 51701; 71045; 71046; 73562; 80053; 81003; 83735; 83880; 84443; 84484; 84550; 85025; 85055; 85610; 85730; 93005; 93306; 99285; A9270; C1779; C1785; G0378; J0690; J2250; J3010; J3475; J7030; J7040

== ENCOUNTER 2020-03-30 08:47 | Outpatient (CLI) | payer OTHER, SELFPAY ==
[2020-03-30 10:18] LABS: Alanine Aminotransferase 37 U/L (4-35); Alkaline Phosphatase 64 U/L (38-126); Anion Gap 7 mmol/L (8-16); Aspartate Amino Transferase 25 U/L (14-36); Bilirubin,Total 0.9 mg/dL (0.2-1.3); Blood Urea Nitrogen 22 mg/dL (7-17); Calcium 9.3 mg/dL (8.4-10.2); Carbon Dioxide 27 mmol/L (22-30); Chloride 101 mmol/L (98-107); Estimated Glomerular Filt Rate > 60; Glucose 97 mg/dL (65-105); Magnesium 1.6 mg/dL (1.6-2.3); Potassium 3.8 mmol/L (3.4-5.0); Sodium 135 mmol/L (137-145)
== END 2020-03-30 08:48 | disposition home or self-care (01) ==
PROVIDERS: PCP Family Medicine; Visit Provider Physician Assistant
DX: E83.42 Hypomagnesemia (principal); R74.0 Nonspecific elevation of levels of transaminase and lactic acid dehydrogenase [LDH]; E87.6 Hypokalemia
CPT/HCPCS: 36415; 80053; 83735

== ENCOUNTER 2020-07-26 14:36 | Outpatient (CLI) | payer OTHER, SELFPAY ==
--- NOTE | ~2020-07-26 | MM_ITS ---
EXAMINATION: MM screening stewart BI w naomy HISTORY: Screening TECHNIQUE: Craniocaudal and mediolateral oblique 3-D tomosynthesis images were obtained and synthetic 2-D images were generated. CAD analysis was submitted and interpreted. COMPARISON: Comparison to multiple prior studies sequentially, with oldest reviewed study dated 01/2017. BREAST PARENCHYMAL COMPOSITION: There are scattered areas of fibroglandular density. FINDINGS: There is no evidence of suspicious mass, calcification, or architectural distortion to sugg est malignancy in either breast. There has been no suspicious interval change. IMPRESSION: 1. No mammographic evidence of malignancy. 2. Recommend routine screening mammography in one year. BI-RADS Category 1: Negative Reviewed, dictated and finalized at location A. 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
== END 2020-07-26 14:37 | disposition home or self-care (01) ==
LOC: ANHIMG 14:37
PROVIDERS: PCP Family Medicine; Visit Provider Family Medicine
DX: Z12.31 Encounter for screening mammogram for malignant neoplasm of breast (principal)
CPT/HCPCS: 77063; 77067

== ENCOUNTER 2021-06-23 13:39 | Outpatient (CLI) | payer OTHER, SELFPAY ==
[2021-06-23 18:49] LABS: Basophils Percent Auto 0.6 % (0.2-1.2); Eosinophils Absolute Auto 0.1 K/mm3 (0-0.3); Eosinophils Percent Auto 0.9 % (0-4.4); Hematocrit 41.8 % (37.0-47.0); Hemoglobin 13.8 g/dL (12.0-15.0); Immature Granulocyte Absolute 0.02 K/mm3 (0.00-0.031); Immature Granulocyte Percent A 0.3 % (0-0.5); Lymphocytes Absolute Auto 1.63 K/mm3 (0.9-3.2); Lymphocytes Percent Auto 24.7 % (18.3-44.2); Mean Corpuscular Hemoglobin 31.7 pg (26-34); Mean Corpuscular Volume 95.9 fl (80-100); Mean Platelet Volume 11.9 fl (7.4-10.4); Monocytes Absolute Auto 0.8 K/mm3 (0.1-0.6); Monocytes Percent Auto 11.8 % (2.6-8.5); Neutrophils Absolute Auto 4.1 K/mm3 (1.3-6.7); Neutrophils Percent Auto 61.7 % (45.5-73.1); Platelet Count Result 289 k/mm3 (150-375); Red Blood Count 4.36 M/mm3 (4.2-5.4); Red Cell Distribution Width 12.2 % (11.5-14.5); White Blood Count 6.6 K/mm3 (4.5-10.0)
[2021-06-23 20:47] LABS: Alanine Aminotransferase 25 U/L (4-35); Albumin Level 4.7 g/dL (3.5-5.1); Alkaline Phosphatase 74 U/L (38-126); Anion Gap 10 mmol/L (8-16); Aspartate Amino Transferase 32 U/L (14-36); Bilirubin,Total 0.4 mg/dL (0.2-1.3); Blood Urea Nitrogen 15 mg/dL (7-17); Carbon Dioxide 30 mmol/L (22-30); Chloride 94 mmol/L (98-107); Cholesterol 181 mg/dL (0-200); Estimated Glomerular Filt Rate > 60; Glucose 91 mg/dL (65-110); HDL Direct 42 mg/dL; Magnesium 1.6 mg/dL (1.6-2.3); Sodium 134 mmol/L (137-145); Triglycerides 94 mg/dL (<150)
[2021-06-23 20:58] LABS: LDL Cholesterol Direct 135 mg/dL
== END 2021-06-23 13:40 | disposition home or self-care (01) ==
LOC: ANHBWCLAB 13:40
PROVIDERS: PCP Family Medicine; Visit Provider Family Medicine
DX: I44.2 Atrioventricular block, complete (principal); I10 Essential (primary) hypertension; E61.2 Magnesium deficiency
CPT/HCPCS: 36415; 80053; 80061; 83735; 85025

== ENCOUNTER 2021-07-26 06:11 | Observation (INO) | payer MEDICARE, SELFPAY ==
[2021-07-26] VITALS (64 sets, daily range): BP systolic 107–154; BP diastolic 61–94; PULSE 67–103; RESP 10–20; TEMP 36.5–36.7; O2SAT 94–100
--- NOTE | ~2021-07-26 | CT_ITS ---
EXAMINATION: CTA chest PE protocol DATE: 07/26/2021 10:15 INDICATION: Syncope. Elevated d-dimer. TECHNIQUE: Computed tomography (CT) pulmonary angiogram of the chest was performed with 100 mL Omnipa que-350 intravenous contrast. Additional 3D reconstructions utilizing coronal maximum intensity proje ction (MIP) were performed. Automated exposure control and iterative reconstruction technique were em ployed. The dose-length product was 562.46 mGy-cm. COMPARISON: None FINDINGS: Excellent contrast opacification of the pulmonary arteries. There is mild streak artifact from dense contrast in the superior vena cava and right atrium. Mild scattered respiratory motion artifact most prominent in the lung bases were mildly decreases sensitivity in some of the smaller subsegmental pul monary arteries. No pulmonary embolism. Small calcified right upper lobe nodule, calcified mediastina l lymph nodes and calcified nodules in the right hepatic lobe consistent with old granulomatous disea se. No pneumonia or pulmonary edema. Very small bilateral posteriorly layering pleural effusions with mild dependent atelectasis in bilateral lower lobes. Mild cardiomegaly. No pericardial effusion. Nathan l lead pacemaker seen with lead tips at the right atrium and apex of the right ventricle. A few mildl y prominent but still normal-sized likely reactive bilateral hilar lymph nodes. No pathologically enl arged thoracic lymphadenopathy. Thoracic aorta is normal in caliber with no dissection. Multinodular goiter. Small sliding-type hiatal hernia. A few low-attenuation hepatic cysts, the largest measuring 2 cm in the left hepatic lobe. Splenectomy with surgical clip at the empty splenic fossa. Mild thorac ic dextrocurvature. IMPRESSION: 1. No pulmonary embolism. 2. Very small bilateral pleural effusions. 3. Mild cardiomegaly. 4. Multinodular goiter. 5. Small sliding-type hiatal hernia. Reviewed, dictated and finalized at location A. 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
--- NOTE | ~2021-07-26 | CT_ITS ---
EXAMINATION: CT brain wo con DATE: 07/26/2021 07:49 INDICATION: Syncope TECHNIQUE: Computed tomography (CT) of the head was performed without intravenous contrast. Sagittal and coronal reconstructions were performed. The mA was adjusted according to patient size. Iterative reconstruction technique was employed. The dose-length product was 681.00 mGy-cm. COMPARISON: head CT dated 06/11/2018 FINDINGS: No fracture. No acute intracranial hemorrhage, acute infarction or abnormal extra axial fluid collect ion. Ventricles are normal and symmetric. No mass/mass effect. Mild mucosal thickening in the bilater al paranasal sinuses with small amount of posterior layering fluid in the left maxillary sinus. The o rbits and mastoid air cells are normal. IMPRESSION: 1. No fracture or acute intracranial process. Reviewed, dictated and finalized at location A. 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
--- NOTE | ~2021-07-26 | CT_ITS ---
EXAMINATION: CT cervical spine wo con DATE: 07/26/2021 07:50 INDICATION: Neck pain post syncopal episode and fall TECHNIQUE: Computed tomography (CT) of the cervical spine was performed without intravenous contrast. Automated exposure control and iterative reconstruction technique were employed. The dose-length pro duct was 194.83 mGy-cm. COMPARISON: None FINDINGS: Mild reversal of the normal cervical lordosis. 1 mm retrolisthesis C5 on C6. Vertebral body heights a re normal. No fracture. Moderate disc height loss at C4-C5 and C5-C6. Mild disc height loss at the re maining cervical levels. Severe bilateral uncovertebral osteoarthritis at C4-C5 through C6-C7. Bilate ral mild to moderate multilevel cervical facet osteoarthritis. This results in multilevel mild bilate ral neural foraminal stenosis most prominent on the right at C5-C6 and C6-C7. No significant central canal stenosis. Multinodular goiter with several likely benign <1.5 cm thyroid nodules. Mild right an d minimal left apical pleural-parenchymal scarring. Calcified nodule at the right apex consistent wit h old granulomatous disease. IMPRESSION: 1. Moderate cervical spondylosis. No acute osseous abnormality. Reviewed, dictated and finalized at location A. ITAL SUPERINTENDENT
--- NOTE | ~2021-07-26 | US_ITS ---
EXAMINATION: US carotid duplex BI DATE: 07/26/2021 17:35 INDICATION: Syncope TECHNIQUE: Grayscale, color Doppler, and pulsed Doppler images of the cervical carotid arteries were obtained. The degree of vessel stenosis is placed in one of the following categories: normal, <50%, 5 0-69%, >=70% but less than near-occlusion, near-occlusion, or total occlusion. Note that percent sten osis relative to normal distal artery lumen diameter is indirectly measured from velocity measurement s as described by Les, et al. Radiology 2003; 229:340-346. COMPARISON: None. FINDINGS: RIGHT: The right common carotid artery (CCA) peak systolic velocity (PSV) is 138 cm/s. The right internal ca rotid artery (ICA) PSV is 123 cm/s. The right ICA end-diastolic velocity (EDV) is 33 cm/s. The right ICA/CCA PSV ratio is 0.9. Grayscale and color Doppler images yield an estimate of <50% diameter reduc tion from minimal plaque in the ICA. The external carotid artery (ECA) PSV is 145 cm/s. There is ante grade flow in the right vertebral artery. LEFT: The left CCA PSV is 153 cm/s. The left ICA PSV is 131 cm/s. The left ICA EDV is 39 cm/s. The left ICA /CCA PSV ratio is 0.9. Grayscale and color Doppler images including secondary Doppler criteria yield an estimate of <50% diameter reduction from plaque in the ICA. The ECA PSV is 116 cm/s. There is ante grade flow in the left vertebral artery. IMPRESSION: 1. <50% stenosis in the right internal carotid artery. 2. <50% stenosis in the left internal carotid artery. Reviewed, dictated and finalized at location A. INE SETTER SHEET METAL
--- NOTE | 2021-07-26 06:30 | ECG_ITS ---
Measurements Intervals [place] Rate: 67 P: 56 CT: 156 QRS: -24 QRSD: 158 T: 113 QT: 450 QTc: 476 Interpretive Statements SINUS RHYTHM POSSIBLE LEFT ATRIAL ENLARGEMENT LEFT BUNDLE BRANCH BLOCK BASELINE ARTIFACT- I, II, III, AVR, AVL, AVF ABNORMAL ECG Electronically Signed On 07-26-2021 8:44:14 CONSULTING ENGINEER by Felipe Ross D.O.
[2021-07-26 06:49] LABS: Hematocrit 43.1 % (37.0-47.0); Hemoglobin 14.9 g/dL (12.0-15.0); Mean Corpuscular HGB Conc 34.6 g/dl (32-36); Mean Corpuscular Hemoglobin 32.1 pg (26-34); Mean Corpuscular Volume 92.9 fl (80-100); Mean Platelet Volume 11.9 fl (7.4-10.4); Platelet Count Result 184 k/mm3 (150-375); Red Blood Count 4.64 M/mm3 (4.2-5.4); Red Cell Distribution Width 11.9 % (11.5-14.5); White Blood Count 3.6 K/mm3 (4.5-10.0)
--- NOTE | 2021-07-26 06:52 | PC.NURSE ---
RN contacted Sumit Doherty per pt request to notify him that pt was seen in ER and now D/c home. did not answer, left msg requesting a return call.
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
[2021-07-26 07:24] LABS: Band Neutrophils Percent 2 % (0-6); Lymphocytes Absolute Manual 1.51 K/mm3 (1.1-4.5); Monocytes Absolute Manual 0.54 K/mm3 (0.1-0.90); Monocytes Percent Manual 15 % (3-9); Neutrophils Absolute Manual 1.54 K/mm3 (1.7-7.2); Neutrophils Percent Manual 41 % (46-73); Platelet Estimate Adequate (Adequate); Total Cells Counted 100
[2021-07-26 07:31] LABS: Alanine Aminotransferase 56 U/L (4-35); Albumin Level 4.1 g/dL (3.5-5.1); Alkaline Phosphatase 81 U/L (38-126); Anion Gap 9 mmol/L (8-16); Aspartate Amino Transferase 57 U/L (14-36); Bilirubin,Total 0.3 mg/dL (0.2-1.3); Blood Urea Nitrogen 12 mg/dL (7-17); Calcium 8.6 mg/dL (8.4-10.2); Carbon Dioxide 31 mmol/L (22-30); Chloride 83 mmol/L (98-107); Estimated CRCL calculation 68 ml/min; Estimated Glomerular Filt Rate > 60; Glucose 103 mg/dL (65-110); Potassium 3.4 mmol/L (3.4-5.0); Sodium 123 mmol/L (137-145)
[2021-07-26] MEDS: LACTATED RINGERS 1,000 ML 999 ML IV CONT (07:47)
[2021-07-26 08:36] LABS: D Dimer 0.66 ug/mL (<0.48)
[2021-07-26] MEDS: HYDROcodone/acetaminophen (*CRX) 5-325 MG TABLET 1 TAB PO (12:02)
[2021-07-26 13:04] LABS: EDCOVIDSCREEN Negative (Negative)
[2021-07-26] MEDS: LACTATED RINGERS 1,000 ML 100 ML IV CONT ×2 (13:38→23:06)
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
[2021-07-26 17:29] LABS: Anion Gap 10 mmol/L (8-16); Blood Urea Nitrogen 9 mg/dL (7-17); Calcium 8.7 mg/dL (8.4-10.2); Carbon Dioxide 30 mmol/L (22-30); Chloride 89 mmol/L (98-107); Estimated CRCL calculation 68 ml/min; Estimated Glomerular Filt Rate > 60; Glucose 103 mg/dL (65-110); Magnesium 1.6 mg/dL (1.6-2.3); Potassium 3.3 mmol/L (3.4-5.0); Sodium 129 mmol/L (137-145)
--- NOTE | 2021-07-26 17:32 | ADMGEN ---
This patient, Annel Corona, was admitted to 2 Medical Room 242-. Patient/family oriented to hospital policies and general routines including ID bracelet, bed and alarms, visiting hours, pain management, procedures, bathroom and other care routines, personal items, smoking policy, room service/diet, and visiting hours. Information on how to activate the Rapid Response Team has been discussed. Patient/Family are encouraged to report perceived risks to care and to ask questions if they do not understand what they are told or what they should do.
[2021-07-26 18:04] LABS: Hepatitis B Surface Antigen Negative (Negative)
[2021-07-26 18:09] LABS: HAV RESULT Negative (Negative); Hepatitis B Core IgM Result Negative (Negative)
[2021-07-26 18:21] LABS: Hepatitis C Virus Antibody Negative (Negative)
[2021-07-26 22:32] LABS: Creatinine Urine 57.8 mg/dL
[2021-07-26 22:49] LABS: Sodium Urine Random 9 meq/L
[2021-07-26] MEDS: ACETAMINOPHEN 325 MG TABLET 650 MG PO (23:05)
[2021-07-27] VITALS (15 sets, daily range): BP systolic 134–160; BP diastolic 60–90; PULSE 71–94; RESP 16; TEMP 36.4–36.6; O2SAT 94–98; BMI 26.9
--- NOTE | 2021-07-27 | ECHO_ITS ---
Patient Info Name: Annel Corona Age: 75 years : 1945 Gender: Female Ht: 64 in Wt: 156 lbs BSA: 1.80 m2 HR: 90 bpm BP: 138 / 64 mmHg Heart Rhythm: Sinus Rhythm Technical Quality: Good Exam Date: 07/27/2021 4:22 PM Exam Location: [facility] Room: 242 Patient Status: Inpatient Admit Date: 07/26/2021 Staff Ordering Physician: Shellie Welsh Tile Sprayer: Yvrose Valdes RDCS Attending Provider: Boyd Moreira MD Referring Physician: Blaise US; Exam Type: CA echo doppler color flow Study Info Indications - PPM SYNCOPE S/P FALL Complete two-dimensional, color flow and Doppler transthoracic echocardiogram is performed. Summary 1. Complete two-dimensional, color flow and Doppler transthoracic echocardiogram is performed. 2. Normal left ventricular size with borderline concentric hypertrophy. Good systolic function of all segments an estimated ejection fraction of 67%. No focal wall motion abnormalities present. Grade 2 diastolic dysfunction is present. 3. Pacemaker noted in right heart. 4. No significant valve disease. 5. Mild pulmonary hypertension, estimated pulmonary arterial systolic pressure is 41 mmHg. 6. Normal sinus rhythm. Left Ventricle Left ventricular chamber dimension is normal. Left ventricular systolic function is normal, estimated at 65-70%. There is mildly increased left ventricular wall thickness. Left ventricular septal wall motion is normal. The left ventricular diastolic function is grade II diastolic dysfunction. Right Ventricle Right ventricular chamber dimension is normal. Right ventricular systolic function is normal. Linear artifact in right ventricle suggestive of catheter(s), pacemaker lead(s), or ICD lead(s). Left Atria Left atrial chamber dimension is normal. Right Atria Right atrial chamber dimension is normal. Aortic Valve The aortic valve is trileaflet. There is no aortic valve sclerosis. There is no aortic valve stenosis. There is no aortic valve regurgitation. Pulmonic Valve The pulmonic valve is normal. There is no pulmonic valve stenosis. There is no pulmonic regurgitation. Mitral Valve The mitral valve has calcified annulus. There is no mitral valve stenosis. There is trace mitral valve regurgitation. Tricuspid Valve The tricuspid valve leaflets are normal. There is no significant tricuspid valve stenosis. There is trace tricuspid valve regurgitation. Mild pulmonary hypertension, estimated pulmonary arterial systolic pressure is 41 mmHg. Pericardium/Pleural The pericardium appears normal. There is no pericardial effusion. Inferior Vena Cava Normal inferior vena cava with >50% collapse upon inspiration consistent with Empty right atrial pressure, 10 mmHg. Aorta The aortic root size at the sinus of Valsalva is normal. The prox ascending aorta size is normal. Left Ventricular Outflow Tract Name Value Normal LVOT 2D LVOT Diameter 2.0 cm LVOT Doppler LVOT Peak Gradient 6 mmHg LVOT Mean Gradient 3 mmHg LV
[2021-07-27] MEDS: ACETAMINOPHEN 325 MG TABLET 650 MG PO ×3 (05:20→22:51)
[2021-07-27 06:06] LABS: Basophils Percent Auto 0.3 % (0.2-1.2); Eosinophils Percent Auto 0.3 % (0-4.4); Hematocrit 40.8 % (37.0-47.0); Hemoglobin 13.9 g/dL (12.0-15.0); Lymphocytes Absolute Auto 1.08 K/mm3 (0.9-3.2); Mean Corpuscular HGB Conc 34.1 g/dl (32-36); Mean Corpuscular Hemoglobin 31.7 pg (26-34); Mean Corpuscular Volume 93.2 fl (80-100); Mean Platelet Volume 11.7 fl (7.4-10.4); Monocytes Absolute Auto 0.6 K/mm3 (0.1-0.6); Monocytes Percent Auto 19.7 % (2.6-8.5); Neutrophils Absolute Auto 1.4 K/mm3 (1.3-6.7); Neutrophils Percent Auto 44.7 % (45.5-73.1); Platelet Count Result 194 k/mm3 (150-375); Red Blood Count 4.38 M/mm3 (4.2-5.4); White Blood Count 3.1 K/mm3 (4.5-10.0)
[2021-07-27 06:29] LABS: Alanine Aminotransferase 46 U/L (4-35); Albumin Level 3.7 g/dL (3.5-5.1); Alkaline Phosphatase 74 U/L (38-126); Anion Gap 9 mmol/L (8-16); Aspartate Amino Transferase 49 U/L (14-36); Bilirubin,Total 0.4 mg/dL (0.2-1.3); Blood Urea Nitrogen 7 mg/dL (7-17); Calcium 8.3 mg/dL (8.4-10.2); Carbon Dioxide 30 mmol/L (22-30); Chloride 93 mmol/L (98-107); Estimated CRCL calculation 71 ml/min; Estimated Glomerular Filt Rate > 60; Glucose 100 mg/dL (65-110); Magnesium 1.6 mg/dL (1.6-2.3); Potassium 3.1 mmol/L (3.4-5.0); Sodium 132 mmol/L (137-145)
--- NOTE | 2021-07-27 10:15 | PM.CNCAR ---
Assessment and Plan Additional Plan 75-year-old lady who experienced a syncopal episode yesterday with symptoms of feeling lightheaded for sounds like a couple of minutes before the episode of loss of consciousness. This therefore does not sound like a abrupt bradycardic pauses causing syncope. Patient's with that type problem generally of no symptoms leading up to the event. In addition to this she is known to have complete heart block and has a normally functioning pacemaker. For completeness we should have the [employer] rep come into the hospital and checked the device. Further recommendations if needed following pacemaker interrogation Quinn Feng MD [facility] History of Present Illness History of Present Illness Consult date/time: 07/27/21 10:15 Reason For Visit: Syncope, hyponaturemia Narrative: This is a 75-year-old lady I am seeing at the request of the hospitalist's because she came in yesterday after experiencing a syncopal episode at home. The patient was in her usual state of what she thinks is fairly good health and she began to feel unwell yesterday shortly after getting up from bed. She describes feeling episodes of lightheadedness which are very unusual for her. She was not feeling ill in any other way. She went into the restroom at home to use the toilet and get shortly after using the toilet she came out and was walking back to her bedroom and felt very lightheaded and had a syncopal episode that was relatively brief. She did fall to the floor sustaining a contusion about the right eye and she did have a blow to the face knocking out a maxillary incisor. She was brought to the emergency room for evaluation and was admitted to the hospital. Her electrocardiogram shows a sinus rhythm with atrial sensing and ventricular pacing. She does take lisinopril with hydrochlorothiazide for hypertension chronically. There have not been any dosage adjustments recently. She denies any symptoms of chest pain pressure or heaviness she is not having any orthopnea PND or edema. She states she did have a syncopal episode when she was a teenager sounds like 1 phlebotomy was being performed but that was many years ago obviously. She has not had any subsequent syncopal episodes until the 1 we are described yesterday. She is known to me with a history of complete heart block. I saw this patient in consultation in March of 2020 when she came to [facility] with sense of generalized weakness. Interestingly then she was not having syncopal episodes. She was bradycardic and had evidence of complete heart block and underwent implantation of a [employer] permanent dual-chamber pacing system. She has been following in my office pacemaker checks up till now have demonstrated normal device function. The device has not been interrogated since she has been in the hospital from what I see on the chart. Review of Systems Constitutional: Constitutional: Reports no additional constitutional complaints Eyes: Eyes: Reports no additional eye complaints ENT: Reports system reviewed and no additional complaints, except as documented Cardiovascular: Cardiovascular: Reports no additional cardiovascular complaints Respiratory: Respiratory: Reports no additional respiratory complaints Gastrointestinal: Gastrointestinal: Reports no additional gastrointestinal complaints Musculoskeletal: Musculoskeletal: Reports no additional musculoskeletal complaints Integumentary/Breasts: Skin/Breast: Reports system reviewed and no additional complaints, except as docu Neurologic: Reports as per HPI Endocrine: Endocrine: Reports no additional endocrine complaints Hematologic/Lymphatic: Hematologic/Lymphatic: Reports no additional hematologic/lymphatic complaints Allergic/Immunologic: Allergic/Immunologic: Reports no additional allergic/immunologic complaints [facility] Past Medical History Medical History
--- NOTE | 2021-07-27 10:27 | PM.IMPN ---
Progress Note: A&P Assessment and Plan (1) Syncope: Qualifiers: Syncope type: unspecified Qualified Code(s): R55 - Syncope and collapse Code(s): R55 - Syncope and collapse Status: Acute Assessment and Plan: Orthostatics positive Interrogate pacemaker to rule out dysrhythmia Carotid Doppler ultrasounds with <50% stenosis Monitor orthostatic vital signs (2) Hyponatremia: Code(s): E87.1 - Hypo-osmolality and hyponatremia Status: Acute Assessment and Plan: Sodium was 134 about a month ago No recent change in medications and has been on hydrochlorothiazide for many years Patient does endorse a decrease in appetite the last several days though IVF Urine sodium within range Serum osmolalities are pending TSH wnl (3) Elevated LFTs: Code(s): R79.89 - Other specified abnormal findings of blood chemistry Status: Acute Assessment and Plan: AST/ALT are mildly elevated Abdominal exam is benign Hepatitis panel neg (4) Multinodular goiter: Code(s): E04.2 - Nontoxic multinodular goiter Status: Acute Assessment and Plan: Can be worked up as an outpatient No acute issues (5) Essential hypertension: Code(s): I10 - Essential (primary) hypertension Status: Chronic Assessment and Plan: Stable Her hydrochlorothiazide is on hold given hyponatremia/ hypochloremia Monitor Subjective Date/time seen: 07/27/21 10:27 Interval history: Pt seen and evaluated; labs, vs, diagnostic results reviewed; denies any dizziness this morning Review of Systems Review of Systems: All systems reviewed & are unremarkable except as noted in HPI and below Exam Narrative: General: NAD HEENT: Abrasion on the right side of the eye; ecchymosis noted around orbital. EOMI. Sclerae anicteric. Tacky mucous membranes. Tooth 9 is broken. Neck: Supple. No JVD. Respiratory: Lungs are clear to auscultation bilaterally. Cardiovascular: Regular rate and rhythm with S1-S2. Chest: Pacemaker in the left anterior chest. Gastrointestinal: Abdomen is soft, nontender, and nondistended with positive bowel sounds. Skin: Warm and dry. Abrasion to the right side of the eye and on the knees. Extremities: No cyanosis, clubbing, or edema. Radial and pedal pulses intact. Spine: No midline vertebral tenderness. Neurological: Alert and oriented. Speech is clear. No facial asymmetry. No gross focal deficits. Psychiatric: Pleasant and cooperative with normal mood and affect. Judgment and insight intact. Objective Data Vital Signs Vital Signs: Vital Signs - 24 hr 07/26/21 10:30 07/26/21 10:37 07/26/21 10:45 Temperature Pulse Rate 73 72 74 Respiratory Rate 18 16 13 Blood Pressure 142/77 H Pulse Oximetry 98 07/26/21 10:46 07/26/21 10:47 07/26/21 11:00 Temperature Pulse Rate 73 79 75 Respiratory Rate 14 14 Blood Pressure 146/76 H Pulse Oximetry 07/26/21 11:15 07/26/21 11:21 07/26/21 11:39 Temperature Pulse Rate 69 69 78 Respiratory Rate 16 15 15 Blood Pressure 150/75 H Pulse Oximetry 07/26/21 11:45 07/26/21 12:00 07/26/21 12:15 Temperature Pulse Rate 75 69 96 Respiratory Rate 14 14 18 Blood Pressure 144/83 H Pulse Oximetry 98 07/26/21 12:16 07/26/21 12:30 07/26/21 12:45 Temperature Pulse Rate 92 98 101 H Respiratory Rate 14 13 16 Blood Pressure 144/83 H Pulse Oximetry 07/26/21 13:00 07/26/21 13:01 07/26/21 13:15 Temperature Pulse Rate 79 78 72 Respiratory Rate 13 15 14 Blood Pressure 142/75 H Pulse Oximetry 07/26/21 13:30 07/26/21 13:52 07/26/21 14:00 Temperature Pulse Rate 85 74 86 Respiratory Rate 18 15 17 Blood Pressure Pulse Oximetry 07/26/21 14:42 07/26/21 14:45 07/26/21 15:01 Temperature Pulse Rate 73 75 75 Respiratory Rate 18 16 18 Blood Pressure Pulse Oximetry 96 07/26/21 15:15 07/26/21 15:16 07/26/21 15:38 Temperature
[2021-07-27] MEDS: ASCORBIC ACID 500 MG TABLET PO ×2 (10:39→16:09)
[2021-07-27] MEDS: lisinopriL 20 MG TABLET PO ×2 (10:39→20:23)
[2021-07-27] MEDS: POTASSIUM CHLORIDE 20 MEQ TABLET 40 MEQ PO (10:40)
[2021-07-27] MEDS: CYANOCOBALAMIN 500 MCG TABLET PO (10:40)
[2021-07-27] MEDS: THERAPEUTIC MULTIVITAMINS/MINERALS TAB (*BKC) 1 TABLET PO (10:40)
--- NOTE | 2021-07-27 12:12 | PCPTNOTE ---
Discussed pt with OT and nursing-- they report pt is independent with her mobility and walking. I talked with pt, she was eating, stated she did not need therapy or any help with her walking. PT evaluation was not indicated due to pt independent. PT evaluation was not performed.
[2021-07-27] MEDS: LACTATED RINGERS 1,000 ML 70 ML IV CONT (16:10)
[2021-07-28] VITALS (8 sets, daily range): BP systolic 149–176; BP diastolic 62–81; PULSE 73–97; RESP 16; TEMP 36–37.1; O2SAT 95–99
[2021-07-28] MEDS: LACTATED RINGERS 1,000 ML 70 ML IV CONT (05:15)
[2021-07-28] MEDS: CYANOCOBALAMIN 500 MCG TABLET PO (09:00)
[2021-07-28] MEDS: THERAPEUTIC MULTIVITAMINS/MINERALS TAB (*BKC) 1 TABLET PO (09:00)
[2021-07-28] MEDS: lisinopriL 20 MG TABLET PO (09:00)
[2021-07-28] MEDS: ASCORBIC ACID 500 MG TABLET PO (09:00)
[2021-07-28 10:26] LABS: Basophils Percent Auto 0.3 % (0.2-1.2); Eosinophils Percent Auto 0.3 % (0-4.4); Hematocrit 41.3 % (37.0-47.0); Hemoglobin 13.7 g/dL (12.0-15.0); Immature Granulocyte Absolute 0.01 K/mm3 (0.00-0.031); Immature Granulocyte Percent A 0.3 % (0-0.5); Lymphocytes Absolute Auto 0.84 K/mm3 (0.9-3.2); Lymphocytes Percent Auto 23.9 % (18.3-44.2); Mean Corpuscular HGB Conc 33.2 g/dl (32-36); Mean Corpuscular Hemoglobin 31.7 pg (26-34); Mean Corpuscular Volume 95.6 fl (80-100); Mean Platelet Volume 11.6 fl (7.4-10.4); Monocytes Absolute Auto 0.6 K/mm3 (0.1-0.6); Monocytes Percent Auto 15.6 % (2.6-8.5); Neutrophils Absolute Auto 2.1 K/mm3 (1.3-6.7); Neutrophils Percent Auto 59.6 % (45.5-73.1); Platelet Count Result 201 k/mm3 (150-375); Red Blood Count 4.32 M/mm3 (4.2-5.4); Red Cell Distribution Width 12.3 % (11.5-14.5); White Blood Count 3.5 K/mm3 (4.5-10.0)
[2021-07-28 10:35] LABS: Alanine Aminotransferase 42 U/L (4-35); Albumin Level 3.8 g/dL (3.5-5.1); Alkaline Phosphatase 61 U/L (38-126); Anion Gap 6 mmol/L (8-16); Aspartate Amino Transferase 49 U/L (14-36); Bilirubin,Total 0.3 mg/dL (0.2-1.3); Blood Urea Nitrogen 7 mg/dL (7-17); Calcium 8.3 mg/dL (8.4-10.2); Carbon Dioxide 30 mmol/L (22-30); Chloride 95 mmol/L (98-107); Estimated CRCL calculation 81 ml/min; Estimated Glomerular Filt Rate > 60; Glucose 92 mg/dL (65-110); Magnesium 1.4 mg/dL (1.6-2.3); Potassium 3.7 mmol/L (3.4-5.0); Sodium 131 mmol/L (137-145)
--- NOTE | 2021-07-28 11:44 | PM.DS ---
DS: Admitting Diagnosis Discharge Date 07/28/2021 Admitting Diagnosis Syncope, hypertension, hyponatremia, elevated LFTs, multinodular goiter DS: Discharge Diagnosis Discharge Diagnosis (1) Syncope: Qualifiers: Syncope type: unspecified Qualified Code(s): R55 - Syncope and collapse Code(s): R55 - Syncope and collapse Status: Acute Assessment and Plan: Orthostatics positive Interrogate pacemaker to rule out dysrhythmia Carotid Doppler ultrasounds with <50% stenosis Monitor orthostatic vital signs (2) Hyponatremia: Code(s): E87.1 - Hypo-osmolality and hyponatremia Status: Acute Assessment and Plan: Sodium was 134 about a month ago No recent change in medications and has been on hydrochlorothiazide for many years Patient does endorse a decrease in appetite the last several days though IVF Urine sodium within range Serum osmolalities are pending TSH wnl (3) Elevated LFTs: Code(s): R79.89 - Other specified abnormal findings of blood chemistry Status: Acute Assessment and Plan: AST/ALT are mildly elevated Abdominal exam is benign Hepatitis panel neg (4) Multinodular goiter: Code(s): E04.2 - Nontoxic multinodular goiter Status: Acute Assessment and Plan: Can be worked up as an outpatient No acute issues (5) Essential hypertension: Code(s): I10 - Essential (primary) hypertension Status: Chronic Assessment and Plan: Stable Her hydrochlorothiazide is on hold given hyponatremia/ hypochloremia Monitor DS: Summary Hospital Course Hospital Course: This is a 75-year-old female with hypertension and complete heart block status post permanent pacemaker insertion in March 2020 presented to the emergency department earlier today from home via EMS for evaluation after a syncopal episode. Early this morning she got up to use the restroom and at that time she noticed that she was a bit sweaty. While sitting on the toilet she felt perhaps a bit dizzy and she felt more lightheaded when she stood up. She paused for a moment at the sink as she felt better and she began to walk down the hallway to her bedroom and the next thing she knows she was waking up on the floor. She fell forward onto the carpet and sustained and abrasion on the right side of her eye and broke a tooth. Her neck has been a bit sore since the fall but she sustained no other significant injuries. In the emergency department she was found to have a sodium level of 123 and with further questioning she does mention that she was recently told that her sodium was low and she was instructed to eat more table salt. She has not done this however as she cooks with her 's dietary restrictions in mind which includes a low-sodium diet. She received IV fluids, imaging, pacemaker was interrogated and carotid Dopplers completed and orthostatic vital signs completed. Patient improved and no acute concerns were found. She can follow up outpatient with her primary care provider for an ultrasound on her thyroid. Patient was discharged home. Time Spent with Patient Time attestation: Total time spent providing and/or coordinating discharge services:60 min Exam Narrative: General: NAD HEENT: Abrasion on the right side of the eye; ecchymosis noted around orbital. EOMI. Sclerae anicteric. Tacky mucous membranes. Tooth 9 is broken. Neck: Supple. No JVD. Respiratory: Lungs are clear to auscultation bilaterally. Cardiovascular: Regular rate and rhythm with S1-S2. Chest: Pacemaker in the left anterior chest. Gastrointestinal: Abdomen is soft, nontender, and nondistended with positive bowel sounds. Skin: Warm and dry. Abrasion to the right side of the eye and on the knees. Extremities: No cyanosis, clubbing, or edema. Radial and pedal pulses intact. Spine: No midline vertebral tenderness. Neurological: Alert and oriented. Speech is clear. No facial asymmetry. No gross focal
[2021-07-28] MEDS: MAGNESIUM SULF 4 GM/WATER100ML 4 GM/100 ML BAG IVPB (12:50)
[2021-07-28] MEDS: MAGNESIUM OXIDE 400 MG TABLET PO (13:53)
[2021-07-30 03:09] LABS: Osmolality, Urine 206 mOsm/kg (50-1200)
== END 2021-07-28 15:10 | disposition home or self-care (01) ==
LOC: ANHED 11:17 → ANH2MED 16:43
PROVIDERS: Emergency Medicine; Physician Assistant; Admitting Provider Internal Medicine; Emergency Provider Emergency Medicine; PCP Family Medicine; Visit Provider Nurse Practitioner
DX: R55 Syncope and collapse (principal); S00.83XA Contusion of other part of head, initial encounter; K03.81 Cracked tooth; R79.89 Other specified abnormal findings of blood chemistry; Z20.822 Contact with and (suspected) exposure to COVID-19; I10 Essential (primary) hypertension; I44.2 Atrioventricular block, complete; E04.2 Nontoxic multinodular goiter; E87.1 Hypo-osmolality and hyponatremia; R63.0 Anorexia; Z95.0 Presence of cardiac pacemaker; W19.XXXA Unspecified fall, initial encounter; Z79.899 Other long term (current) drug therapy
CPT/HCPCS: 36415; 70450; 71275; 72125; 80048; 80053; 80074; 82570; 83735; 83935; 84300; 84443; 85025; 85380; 87426; 93005; 93306; 93880; 96360; 96361; 96374; 97165; 99285; A9270; C9803; G0378; J3475; J7120; Q9967

== ENCOUNTER 2021-08-04 13:51 | Outpatient (CLI) | payer MEDICARE, SELFPAY ==
[2021-08-04 20:20] LABS: Anion Gap 8 mmol/L (8-16); Blood Urea Nitrogen 13 mg/dL (7-17); Calcium 9.3 mg/dL (8.4-10.2); Carbon Dioxide 31 mmol/L (22-30); Chloride 94 mmol/L (98-107); Estimated Glomerular Filt Rate > 60; Glucose 102 mg/dL (65-110); Magnesium 1.9 mg/dL (1.6-2.3); Potassium 4.4 mmol/L (3.4-5.0); Sodium 133 mmol/L (137-145)
[2021-08-07 04:26] LABS: Thyroid Peroxidase Antibodies 4 IU/mL (<9)
== END 2021-08-04 13:52 | disposition home or self-care (01) ==
PROVIDERS: PCP Family Medicine; Visit Provider Family Medicine
DX: E04.2 Nontoxic multinodular goiter (principal); E87.1 Hypo-osmolality and hyponatremia; R55 Syncope and collapse
CPT/HCPCS: 36415; 80048; 83735; 86376

== ENCOUNTER → 2021-08-23 12:41 | Outpatient (CLI) | payer MEDICARE, SELFPAY ==
--- NOTE | ~2021-08-23 | US_ITS ---
EXAMINATION: US thyroid DATE: 08/23/2021 12:58 INDICATION: Nontoxic multinodular goiter. TECHNIQUE: Multiple ultrasound images of the thyroid were obtained. COMPARISON: None. FINDINGS: The right thyroid lobe measures 4.8 x 2.4 x 1.3 cm. The left thyroid lobe measures 4.5 x 1.3 x 1.2 c m. In the right thyroid lobe, there is a 2.2 cm solid, hypoechoic, wwizn-pxun-dtoy nodule with ill-d efined margin without echogenic foci (TI-RADS TR4). In the right thyroid lobe, there is an 8 mm solid , hypoechoic, bdyxf-agoj-ehjk nodule with ill-defined margin without echogenic foci (TR4). In the lef t thyroid lobe, there is a 8 mm solid, hypoechoic, svkbr-tnao-uwuz nodule with ill-defined margin wit hout echogenic foci (TR4). In the left thyroid lobe, there is a 7 mm solid, isoechoic, zvshd-vcdr-vbv l nodule with ill-defined margin without echogenic foci (TR3). IMPRESSION: 1. Multinodular goiter. Ultrasound-guided fine-needle aspiration of the 2.2 cm right thyroid nodule i s recommended. Reviewed, dictated and finalized at location A. IMEDIA INSTRUCTIONAL DESIGNER IMPRESSION: 1. Multinodular goiter. Ultrasound-guided fine-needle aspiration of the 2.2 cm right thyroid nodule is recommended.
== END ==
PROVIDERS: PCP Family Medicine; Visit Provider Family Medicine
DX: E04.2 Nontoxic multinodular goiter (principal)
CPT/HCPCS: 76536

== ENCOUNTER 2021-08-25 13:51 | Outpatient (CLI) | payer MEDICARE, SELFPAY ==
[2021-08-25 20:07] LABS: Alanine Aminotransferase 16 U/L (4-35); Albumin Level 4.6 g/dL (3.5-5.1); Alkaline Phosphatase 85 U/L (38-126); Anion Gap 8 mmol/L (8-16); Aspartate Amino Transferase 26 U/L (14-36); Bilirubin,Total 0.4 mg/dL (0.2-1.3); Blood Urea Nitrogen 20 mg/dL (7-17); Calcium 9.9 mg/dL (8.4-10.2); Carbon Dioxide 28 mmol/L (22-30); Chloride 103 mmol/L (98-107); Estimated Glomerular Filt Rate > 60; Glucose 103 mg/dL (65-110); Potassium 4.1 mmol/L (3.4-5.0); Sodium 139 mmol/L (137-145)
[2021-08-25 21:36] LABS: HAV RESULT Negative (Negative); Hepatitis B Core IgM Result Negative (Negative); Hepatitis B Surface Antigen Negative (Negative)
[2021-08-25 21:47] LABS: Hepatitis C Virus Antibody Negative (Negative)
== END 2021-08-25 13:52 | disposition home or self-care (01) ==
PROVIDERS: PCP Family Medicine; Visit Provider Family Medicine
DX: R79.89 Other specified abnormal findings of blood chemistry (principal); E87.1 Hypo-osmolality and hyponatremia; R74.01 Elevation of levels of liver transaminase levels
CPT/HCPCS: 36415; 80048; 80074; 80076

== ENCOUNTER 2021-09-14 13:25 | Outpatient (CLI) | payer MEDICARE, SELFPAY ==
--- NOTE | ~2021-09-14 | MM_ITS ---
EXAMINATION: MM screening [facility] BI w naomy HISTORY: Screening mammogram TECHNIQUE: Craniocaudal and mediolateral oblique 3-D tomosynthesis images were obtained and synthetic 2-D images were generated. CAD analysis was submitted and interpreted. COMPARISON: 07/26/2020, 07/22/2019, 07/12/2018 BREAST PARENCHYMAL COMPOSITION: There are scattered areas of fibroglandular density. FINDINGS: There is no evidence of suspicious mass, calcification, or architectural distortion to sugg est malignancy in either breast. There has been no suspicious interval change. IMPRESSION: 1. No mammographic evidence of malignancy. 2. Recommend routine screening mammography in one year. BI-RADS Category 1: Negative Reviewed, dictated and finalized at location A. OR SCHEDULER
== END 2021-09-14 13:26 | disposition home or self-care (01) ==
LOC: ANHIMG 13:26
PROVIDERS: PCP Family Medicine; Visit Provider Family Medicine
DX: Z12.31 Encounter for screening mammogram for malignant neoplasm of breast (principal)
CPT/HCPCS: 77063; 77067

== ENCOUNTER 2021-11-03 13:43 | Outpatient (CLI) | payer MEDICARE, SELFPAY ==
--- NOTE | ~2021-11-03 | DEXA_ITS ---
Bone Density Report Name: TANNER TURNER Age: 75 Sex: Female Ethnicity: White Date of : 1945 Indication: postmenopausal; screening for osteoporosis; height loss; Referring Provider: PALAK BRADLEY Study: Bone densitometry was performed. Exam Date: November 03, 2021 Accession number: [id number] Bone Density: Region BMD T-score Z-score Classification AP Spine(L1-L4) 0.776 -2.5 -0.1 Osteoporosis Femoral Neck (Left) 0.624 -2.0 0.0 Osteopenia Total Hip (Left) 0.762 -1.5 0.3 Osteopenia Femoral Neck (Right) 0.572 -2.5 -0.4 Osteoporosis Total Hip (Right) 0.787 -1.3 0.5 Osteopenia Total Hip Mean 0.775 -1.4 0.4 Osteopenia World Health Organization criteria for BMD impression classify patients as: Normal (T-score at or above -1.0), Osteopenia (T-score between -1.0 and -2.5), or Osteoporosis (T-score at or below -2.5). 10-year Fracture Risk: FRAX not reported because: Some T-score for Spine Total or Hip Total or Femoral Neck at or below -2.5 Clinical Information Provided by Patient: Has used the following medications: Vitamin D, Calcium Patient maximum height was 64.5 Menopause Age: 61 Onset of menses at age 14 Number of children 3 Impression: The patient has osteoporosis, based on the Total Spine T-score. Discussion: INCREASED RISK OF FRACTURE. BONE DENSITY IS UNDESIRABLY LOW AT ONE OR MORE SKELETAL SITES, CONSISTENT WITH POSTMENOPAUSAL OSTEOPOROSIS. This patient's lowest T-score meets the World Health Organization's (WHO) criteria for osteoporosis at one or more sites (T-score -2.5 or below). In untreated patients, the risk of osteoporotic fracture increases approximately two-fold for each 1.0 SD decrease in T-score. Low bone density is not the only risk factor for fracture; also consider factors such as patient's age, frailty or poor health, risk of falling, risk of injury, previous osteoporotic fracture, family history of osteoporosis, cigarette smoking, low body weight, etc. Not everyone with low bone mineral density has osteoporosis; osteomalacia and other metabolic bone disorders should also be considered. Patients who have osteoporosis should be evaluated for specific diseases and conditions (secondary causes) that may cause or contribute to bone loss. The [place] Association [employer] Clinical Endocrinologists (AACE) and National Osteoporosis Foundation (NOF) recommend pharmacologic intervention for all postmenopausal women whose T-score is in this range. The patient should follow a healthful lifestyle (good nutrition with adequate calcium and vitamin D, and appropriate weight-bearing exercise). Follow-Up: Consider a repeat BMD and Vertebral Fracture Assessment (VFA) exam in 2 years or sooner if medically necessary, to reassess this patient's status. Reported by: BRAD on 11/03/2021 2:17
== END 2021-11-03 13:44 | disposition home or self-care (01) ==
PROVIDERS: PCP Family Medicine; Visit Provider Family Medicine
DX: M81.0 Age-related osteoporosis without current pathological fracture (principal); Z51.81 Encounter for therapeutic drug level monitoring; Z79.899 Other long term (current) drug therapy; M85.852 Other specified disorders of bone density and structure, left thigh
CPT/HCPCS: 77080

== ENCOUNTER 2022-10-31 14:18 | Outpatient (CLI) | payer MEDICARE, SELFPAY ==
--- NOTE | ~2022-10-31 | MM_ITS ---
EXAMINATION: MM screening [facility] BI w naomy HISTORY: Screening mammogram TECHNIQUE: Craniocaudal and mediolateral oblique 3-D tomosynthesis images were obtained and synthetic 2-D images were generated. CAD analysis was submitted and interpreted. COMPARISON: 09/14/2021, 07/26/2020, 07/22/2019 BREAST PARENCHYMAL COMPOSITION: There are scattered areas of fibroglandular density. FINDINGS: No suspicious mass, calcification, or architectural distortion are identified in either mark ast to suggest malignancy. There has been no suspicious interval change. IMPRESSION: 1. No mammographic evidence of malignancy. 2. Recommend routine screening mammography in one year. BI-RADS Category 1: Negative Reviewed, dictated and finalized at location A.
== END 2022-10-31 14:19 | disposition home or self-care (01) ==
PROVIDERS: PCP Family Medicine; Visit Provider Family Medicine
DX: Z12.31 Encounter for screening mammogram for malignant neoplasm of breast (principal)
CPT/HCPCS: 77063; 77067

== ENCOUNTER 2023-12-20 15:34 | Outpatient (CLI) | payer MEDICARE, SELFPAY ==
--- NOTE | ~2023-12-20 | MM_ITS ---
EXAMINATION: MM screening [facility] BI w naomy HISTORY: Screening TECHNIQUE: Craniocaudal and mediolateral oblique 3-D tomosynthesis images were obtained and synthetic 2-D images were generated. CAD analysis was submitted and interpreted. COMPARISON: Comparison to multiple prior studies sequentially, with oldest reviewed study dated 01/2017. BREAST PARENCHYMAL COMPOSITION: There are scattered areas of fibroglandular density. FINDINGS: There is no evidence of suspicious mass, calcification, or architectural distortion to sugg est malignancy in either breast. There has been no suspicious interval change. IMPRESSION: 1. No mammographic evidence of malignancy. 2. Recommend routine screening mammography in one year. BI-RADS Category 1: Negative Reviewed, dictated and finalized at location B.
== END 2023-12-20 15:35 | disposition home or self-care (01) ==
PROVIDERS: PCP Family Medicine; Visit Provider Family Medicine
DX: Z12.31 Encounter for screening mammogram for malignant neoplasm of breast (principal)
CPT/HCPCS: 77063; 77067

== ENCOUNTER 2025-01-05 10:38 | Outpatient (CLI) | payer MEDICARE, SELFPAY ==
--- NOTE | ~2025-01-05 | MM_ITS ---
EXAMINATION: MM screening [facility] BI w naomy HISTORY: Screening mammogram TECHNIQUE: Craniocaudal and mediolateral oblique 3-D tomosynthesis images were obtained and synthetic 2-D images were generated. CAD analysis was submitted and interpreted. COMPARISON: 12/20/2023, 10/31/2022, 09/14/2021 BREAST PARENCHYMAL COMPOSITION:Not Dense. There are scattered areas of fibroglandular density. FINDINGS: No suspicious mass, calcification, or architectural distortion are identified in either mark ast to suggest malignancy. There has been no suspicious interval change. IMPRESSION: No mammographic evidence of malignancy. Recommend routine screening mammography in one year. BI-RADS Category 1: Negative Reviewed, dictated and finalized at location .
== END 2025-01-05 10:39 | disposition home or self-care (01) ==
PROVIDERS: PCP Nurse Practitioner Adult Health; Visit Provider Family Medicine
DX: Z12.31 Encounter for screening mammogram for malignant neoplasm of breast (principal)
CPT/HCPCS: 77063; 77067

== ENCOUNTER 2025-01-13 12:26 | Outpatient (CLI) | payer MEDICARE, SELFPAY ==
--- NOTE | ~2025-01-13 | DEXA_ITS ---
Bone Density Report Name: TANNER TURNER Age: 79 Sex: Female Ethnicity: White Date of : 1945 Indication: postmenopausal osteoporosis; monitoring treatment; Referring Provider: KIRSTEN SEGURA Study: Bone densitometry was performed. Exam Date: January 13, 2025 Accession number: [id number] Bone Density: Region BMD T-score Z-score Classification AP Spine(L1-L4) 0.764 -2.6 0.0 Osteoporosis Femoral Neck (Left) 0.567 -2.5 -0.3 Osteoporosis Total Hip (Left) 0.774 -1.4 0.6 Osteopenia Femoral Neck (Right) 0.563 -2.6 -0.4 Osteoporosis Total Hip (Right) 0.785 -1.3 0.7 Osteopenia Total Hip Mean 0.780 -1.4 0.7 Osteopenia World Health Organization criteria for BMD impression classify patients as: Normal (T-score at or above -1.0), Osteopenia (T-score between -1.0 and -2.5), or Osteoporosis (T-score at or below -2.5). 10-year Fracture Risk: FRAX not reported because: Some T-score for Spine Total or Hip Total or Femoral Neck at or below -2.5 Treated for osteoporosis Previous Exams: -- Region Exam Age BMD T-score BMD Change BMD Change Date g/cm2 vs Baseline vs Previous -- AP Spine (L1-L4) 01/13/2025 79 0.764 -2.6 -1.6% -1.6% 11/03/2021 75 0.776 -2.5 Total Hip(Left) 01/13/2025 79 0.774 -1.4 1.5% 1.5% 11/03/2021 75 0.762 -1.5 Total Hip(Right) 01/13/2025 79 0.785 -1.3 -0.2% -0.2% 11/03/2021 75 0.787 -1.3 -- *Denotes significance at 95% confidence level, LSC for AP Spine = 0.022 g/cm2, LSC for Total Hip = 0.027 g/cm2 Clinical Information Provided by Patient: Is being treated for osteoporosis Has used the following medications: Fosamax (i.e. alendronate), Vitamin D, Calcium Patient maximum height was 64.25 Menopause Age: 61 No regular weight bearing exercise Does not regularly consume dairy products Onset of menses at age 14 Number of children 3 Impression: The patient has osteoporosis, based on the Total Spine T-score. No significant bone loss was observed. Discussion: PATIENT UNDER TREATMENT WITH NO SIGNIFICANT BMD LOSS SINCE LAST EXAM. In an untreated patient, BMD typically declines with age. A lack of decline or gain is usually a sign that treatment is efficacious and fracture risk is reduced. It is important to ask patients whether they are taking their medications and to encourage continued and appropriate compliance with their osteoporosis therapies to reduce fracture risk. It is also important to review their risk factors and encourage appropriate calcium and vitamin D intakes, exercise, fall prevention and other lifestyle measures. Follow-Up: Consider a repeat BMD and Vertebral Fracture Assessment (VFA) exam in 2 years or sooner if medically necessary, to reassess this patient's status. Reported by: JAGDISH on 01/13/2025 1:15:00 PM. Reviewed, dictated and finalized at location A.
== END 2025-01-13 12:27 | disposition home or self-care (01) ==
LOC: MICIMG 12:27
PROVIDERS: PCP Family Medicine; Visit Provider Nurse Practitioner Adult Health
DX: Z78.0 Asymptomatic menopausal state (principal); M81.0 Age-related osteoporosis without current pathological fracture; M85.852 Other specified disorders of bone density and structure, left thigh; M85.851 Other specified disorders of bone density and structure, right thigh
CPT/HCPCS: 77080